=== PATIENT | female | born 2000 | race Caucasian/White ===

== ENCOUNTER 2022-02-07 06:40 | Inpatient (IN) ==
[2022-02-07] MEDS ORDERED: Ketorolac 30 MG/ML VIAL IVP ONE (06:57)
[2022-02-07 07:45] LABS: Basophils % 0.6 %; Eosinophils # 0.2 K/mcL (0.0-0.6); Hematocrit 35.5 % (35.3-44.9); Hemoglobin 11.5 g/dL (11.5-15.4); Immature Granulocytes % 0.3 % (0-4); Lymphocytes % 44.3 %; Mean Corpuscular HGB Conc 32.4 g/dL (31.6-35.5); Mean Corpuscular Volume 86.4 fL (83.0-100.0); Mean Platelet Volume 10.2 fL (9.4-12.4); Monocytes # 0.6 K/mcL (0.0-1.3); Monocytes % 8.5 %; Neutrophils # 2.9 K/mcL (1.6-8.9); Platelet Count 268 K/mcL (140-400); Red Blood Count 4.11 M/mcL (3.82-4.97); Red Cell Distribution Width 12.8 % (11.5-14.5); Segmented Neutrophils % 43.3 %; White Blood Count 6.7 K/mcL (4.3-11.1)
[2022-02-07 08:38] LABS: BUN/Creatinine Ratio 17 (6-26); Blood Urea Nitrogen 12 mg/dL (6-20); Calcium 9.2 mg/dL (8.6-10.3); Carbon Dioxide 26 mEq/L (23-29); Chloride 104 mEq/L (98-107); Glucose 99 mg/dL (70-105); Osmolality,Calculated 286 (280-300); Potassium 3.3 mEq/L (3.5-5.1); Sodium 138 mEq/L (136-145); Troponin I < 0.03 ng/mL (< 0.04); eGFR For African Americans > 60 (> 60); eGFR For Non-African Americans > 60 (> 60)
[2022-02-07] MEDS ORDERED: Ondansetron 4 MG/2 ML VIAL IVP PRN (09:16)
[2022-02-07] MEDS ORDERED: Naloxone 0.4 MG/ML INJ IVP PRN (09:16)
[2022-02-07] MEDS: Ipratropium/Albuterol Neb 3 ML IH SCH ×3 (10:50→21:47)
[2022-02-07] MEDS: Acetaminophen 325 MG TABLET PO PRN ×3 (11:16→23:52)
[2022-02-07] MEDS ORDERED: Ketorolac 30 MG/ML VIAL IVP PRN (21:37)
[2022-02-08] MEDS: Ipratropium/Albuterol Neb 3 ML IH SCH ×3 (03:38→15:26)
[2022-02-08 05:24] LABS: Basophils % 0.5 %; Eosinophils # 0.1 K/mcL (0.0-0.6); Eosinophils % 2.4 %; Hematocrit 36.1 % (35.3-44.9); Hemoglobin 11.4 g/dL (11.5-15.4); Immature Granulocytes % 0.2 % (0-4); Lymphocytes # 2.4 K/mcL (0.6-4.6); Lymphocytes % 40.2 %; Mean Corpuscular HGB Conc 31.6 g/dL (31.6-35.5); Mean Corpuscular Hemoglobin 27.6 pg (28.0-33.3); Mean Corpuscular Volume 87.4 fL (83.0-100.0); Mean Platelet Volume 10.2 fL (9.4-12.4); Monocytes # 0.5 K/mcL (0.0-1.3); Monocytes % 9.1 %; Neutrophils # 2.8 K/mcL (1.6-8.9); Platelet Count 251 K/mcL (140-400); Red Blood Count 4.13 M/mcL (3.82-4.97); Red Cell Distribution Width 12.9 % (11.5-14.5); Segmented Neutrophils % 47.6 %; White Blood Count 5.8 K/mcL (4.3-11.1)
[2022-02-08 05:42] LABS: Alanine Aminotransferase 11 Units/L (7-52); Albumin/Globulin Ratio 1.5 (1.1-2.2); Alkaline Phosphatase 52 Units/L (34-104); Aspartate Amino Transferase 12 Units/L (13-39); BUN/Creatinine Ratio 11 (6-26); Bilirubin,Total 0.6 mg/dL (0.3-1.0); Blood Urea Nitrogen 7 mg/dL (6-20); Calcium 8.9 mg/dL (8.6-10.3); Carbon Dioxide 24 mEq/L (23-29); Chloride 105 mEq/L (98-107); Globulin 2.6 g/dL (2.4-3.5); Glucose 101 mg/dL (70-105); Osmolality,Calculated 282 (280-300); Potassium 3.4 mEq/L (3.5-5.1); Sodium 137 mEq/L (136-145); Total Protein 6.6 g/dL (6.4-8.9); eGFR For African Americans > 60 (> 60); eGFR For Non-African Americans > 60 (> 60)
[2022-02-08] MEDS: Acetaminophen 325 MG TABLET PO PRN (08:16)
[2022-02-08] MEDS ORDERED: Ipratropium/Albuterol Neb 3 ML IH PRN (16:11)
[2022-02-09] MEDS ORDERED: Morphine Sulfate 2 MG/ML SYRINGE IVP ONE (11:55)
[2022-02-09] MEDS: Acetaminophen 325 MG TABLET PO PRN (13:20)
[2022-02-10] MEDS: Acetaminophen 325 MG TABLET PO PRN ×2 (02:31→16:30)
[2022-02-10] MEDS: Ipratropium/Albuterol Neb 3 ML IH SCH (23:36)
[2022-02-11] MEDS: Acetaminophen 325 MG TABLET PO PRN ×3 (03:49→22:14)
[2022-02-11] MEDS: Ipratropium/Albuterol Neb 3 ML IH SCH ×4 (04:15→21:46)
[2022-02-12] MEDS: Ipratropium/Albuterol Neb 3 ML IH SCH ×4 (03:31→22:21)
[2022-02-12 07:37] LABS: BUN/Creatinine Ratio 17 (6-26); Blood Urea Nitrogen 11 mg/dL (6-20); Calcium 9.6 mg/dL (8.6-10.3); Carbon Dioxide 27 mEq/L (23-29); Chloride 101 mEq/L (98-107); Glucose 91 mg/dL (70-105); Osmolality,Calculated 281 (280-300); Potassium 3.8 mEq/L (3.5-5.1); Sodium 136 mEq/L (136-145); eGFR For African Americans > 60 (> 60); eGFR For Non-African Americans > 60 (> 60)
[2022-02-12 07:40] LABS: Basophils % 0.4 %; Eosinophils # 0.2 K/mcL (0.0-0.6); Eosinophils % 3.6 %; Hematocrit 37.8 % (35.3-44.9); Hemoglobin 12.1 g/dL (11.5-15.4); Immature Granulocytes % 0.1 % (0-4); Lymphocytes # 2.2 K/mcL (0.6-4.6); Mean Corpuscular Hemoglobin 27.8 pg (28.0-33.3); Mean Corpuscular Volume 86.9 fL (83.0-100.0); Mean Platelet Volume 10.2 fL (9.4-12.4); Monocytes # 0.5 K/mcL (0.0-1.3); Monocytes % 7.8 %; Neutrophils # 3.7 K/mcL (1.6-8.9); Platelet Count 279 K/mcL (140-400); Red Blood Count 4.35 M/mcL (3.82-4.97); Segmented Neutrophils % 55.1 %; White Blood Count 6.7 K/mcL (4.3-11.1)
[2022-02-13] MEDS: Ipratropium/Albuterol Neb 3 ML IH SCH ×3 (03:49→15:45)
[2022-02-13] MEDS ORDERED: *HR* Propofol 200 MG/20 ML VIAL IVP ONE ×2 (12:41→13:44)
[2022-02-13] MEDS ORDERED: *HR* FentaNYL (PF) 100 MCG/2 ML VIAL ONE (12:42)
[2022-02-13] MEDS ORDERED: Ondansetron 4 MG/2 ML VIAL ONE (12:43)
[2022-02-13] MEDS ORDERED: *HR* Rocuronium Bromide 50 MG/5 ML VIAL ONE (12:43)
[2022-02-13] MEDS ORDERED: Sugammadex Sodium 200 MG/2 ML VIAL IV ONE (12:43)
[2022-02-13] MEDS ORDERED: Lidocaine -MPF 4% 5 ML AMPUL ONE (12:43)
[2022-02-13] MEDS ORDERED: *HR* Midazolam HCl 2 MG/2 ML VIAL ONE (12:50)
[2022-02-13] MEDS ORDERED: Albuterol 2.5 MG/3 ML NEBULIZER IH PRN ×2 (13:19→16:05)
[2022-02-13] MEDS ORDERED: *HR* Meperidine 25 MG/ML SYRINGE IVP PRN (13:19)
[2022-02-13] MEDS ORDERED: *HR* HYDROmorphone PF 0.5 MG/0.5 ML SYRINGE IVP PRN (13:19)
[2022-02-13] MEDS ORDERED: Ondansetron 4 MG/2 ML VIAL IVP PRN (13:19)
[2022-02-13] MEDS ORDERED: Doxycycline 800 MG, Syringe LUER-LOK 1 EACH in 0.9 % Sodium Chloride 50 ML IX ONE (14:00)
[2022-02-13] MEDS ORDERED: *HR* HYDROMORPHONE 2 MG/ML VIAL ONE (14:13)
[2022-02-13] MEDS ORDERED: Acetaminophen 325 MG TABLET PO PRN (16:05)
[2022-02-13] MEDS ORDERED: Naloxone 0.4 MG/ML INJ IVP PRN (16:05)
[2022-02-13] MEDS: *HR* HYDROcodone/Acet 5/325 mg TABLET PO PRN ×2 (16:24→21:00)
[2022-02-13] MEDS: Gabapentin 300 MG CAPSULE PO SCH ×2 (16:24→21:00)
[2022-02-13] MEDS: Ondansetron 4 MG/2 ML VIAL IVP PRN (16:30)
[2022-02-13] MEDS: Ketorolac 30 MG/ML VIAL IVP SCH (17:16)
[2022-02-14] MEDS: Ketorolac 30 MG/ML VIAL IVP SCH ×3 (00:03→12:24)
[2022-02-14] MEDS: Ondansetron 4 MG/2 ML VIAL IVP PRN (01:51)
[2022-02-14] MEDS: *HR* HYDROcodone/Acet 5/325 mg TABLET PO PRN ×2 (04:18→09:04)
[2022-02-14 05:57] LABS: Hemoglobin 12.8 g/dL (11.5-15.4); Mean Corpuscular HGB Conc 32.8 g/dL (31.6-35.5); Mean Corpuscular Hemoglobin 28.1 pg (28.0-33.3); Mean Corpuscular Volume 85.7 fL (83.0-100.0); Mean Platelet Volume 10.1 fL (9.4-12.4); Platelet Count 298 K/mcL (140-400); Red Blood Count 4.55 M/mcL (3.82-4.97); Red Cell Distribution Width 12.8 % (11.5-14.5)
[2022-02-14 06:01] LABS: White Blood Count 10.4 K/mcL (4.3-11.1)
[2022-02-14 06:14] LABS: BUN/Creatinine Ratio 22 (6-26); Blood Urea Nitrogen 14 mg/dL (6-20); Calcium 9.4 mg/dL (8.6-10.3); Carbon Dioxide 24 mEq/L (23-29); Chloride 102 mEq/L (98-107); Glucose 107 mg/dL (70-105); Magnesium 1.7 mg/dL (1.6-2.6); Osmolality,Calculated 277 (280-300); Potassium 4.3 mEq/L (3.5-5.1); Sodium 133 mEq/L (136-145); eGFR For African Americans > 60 (> 60); eGFR For Non-African Americans > 60 (> 60)
[2022-02-14] MEDS: Gabapentin 300 MG CAPSULE PO SCH (07:39)
[2022-02-14 11:24] VITALS: BP 140/82; PULSE 96; TEMP 98.4; O2SAT 96
== END 2022-02-14 14:10 | disposition home or self-care (01) | DRG 121 ==
LOC: EMEROOARM 06:40 → 3NENU 06:40 → SUATTDRO 02-08 17:59 → 2NNU 02-13 14:25
PROVIDERS: ADMIT General Practice; ATTEND Hospitalist